=== PATIENT | female | born 1970 | race Two or more races ===

== ENCOUNTER 2021-01-29 08:32 | Day surgery (SDC) | payer OTHER ==
[~2021-01-29 08:32] MED LIST: IBESARTAN PO; SYNTHROID88 MCG PO; [UNRECOGNIZED DRUG - OTHER] PO
== END 2021-01-29 17:25 | disposition home or self-care (01) ==
LOC: CIR.AMB 08:32
PROVIDERS: ATTEND Colon & Rectal Surgery
DX: C44.520 Squamous cell carcinoma of anal skin (principal)